=== PATIENT | female | born 1995 | race African-American/Black ===

== ENCOUNTER 2017-03-25 12:27 | Emergency (ER) | payer MEDICAID, OTHER ==
[~2017-03-25] VITALS: Ht 162.6 cm; Wt 66.0 kg
[2017-03-25] MEDS ORDERED: CLON1TAB PO (13:06)
[2017-03-25 16:17] VITALS: BP 126/82
[2017-03-25 17:23] LABS: KETONES URINE NEGATIVE (NEGATIVE); LEUKOCYTE ESTERASE URINE NEGATIVE (NEGATIVE); NITRITE URINE NEGATIVE (NEGATIVE); OCCULT BLOOD URINE 2+ (NEGATIVE); PH URINE 6.5 (4.5-8.0); PROTEIN URINE NEGATIVE (NEGATIVE); SPECIFIC GRAVITY URINE 1.022 (1.005-1.030); UROBILINOGEN URINE 0.2 E.U./dL (0.2-1.0)
[2017-03-25 17:34] LABS: CLARITY URINE HAZY (CLEAR); COLOR URINE YELLOW (YELLOW)
== END 2017-03-25 17:33 | disposition left against medical advice (07) ==
LOC: ER 14:41
DX: N92.0 Excessive and frequent menstruation with regular cycle (principal); F17.210 Nicotine dependence, cigarettes, uncomplicated
CPT/HCPCS: 81001; 81025; 99283; Z7610